=== PATIENT | male | born 1975 | race Caucasian/White ===

== ENCOUNTER → 2016-11-03 | Outpatient (CLI) | payer MEDICARE | END | disposition home or self-care (01) | LOC: LABWHC1 08:46 | PROVIDERS: ATTEND Internal Medicine Cardiovascular Disease | DX: R07.9 Chest pain, unspecified (principal) | CPT/HCPCS: 36415; 83704 ==

== ENCOUNTER → 2017-05-07 | Outpatient (CLI) | payer MEDICARE ==
--- NOTE | 2017-05-07 09:57 | CT ---
EXAMINATION TYPE: CT ChestAbdPelvis w con DATE OF EXAM: 05/07/2017 COMPARISON: 05/02/2016 and 06/30/2015. HISTORY: Testiculare cancer. Observation for Mets CT DLP: 601.3 mGycm. Automated Exposure Control for Dose Reduction was Utilized. CONTRAST: CT scan of the thorax, abdomen and pelvis is performed with IV Contrast, patient injected with 100 ml mL of Omnipaque 300. FINDINGS: LUNGS: The lungs are grossly clear, there is no concerning parenchymal mass or nodule identified. Wit hin the left interlobar fissure there are 2 nodular densities measuring 6 mm each which are retrospec tively stable from the prior exam and dating back to 06/30/2015 most likely representing intrafissural lymph nodes or fluid collections. There is no pleural effusion or pneumothorax seen. The tracheobro nchial tree is patent. MEDIASTINUM: There are no greater than 1 cm hilar or mediastinal lymph nodes. No pericardial effusi on is seen. OTHER: No additional significant abnormality is seen. LIVER/GB: No significant abnormality is appreciated. PANCREAS: No significant abnormality is seen. SPLEEN: No significant abnormality is seen. ADRENALS: No significant abnormality is seen. KIDNEYS: No significant abnormality is seen. BOWEL: No significant abnormality is seen. GENITAL ORGANS: The prostate gland is again enlarged measuring 5.2 cm and is heterogenous. LYMPH NODES: No greater than 1cm abdominal or pelvic lymph nodes are appreciated. Periaortic lymph no sofía measures 7 mm on series 3 image 82 series 3 image 76. These are overall not enlarged and similar to the prior exam. OSSEOUS STRUCTURES: The sclerotic focus within the left iliac bone on series 3 image 108 is stable fr om the prior examinations as is the peripherally sclerotic nonaggressive appearing left iliac lesion on series 3 image 97. No new or suspicious osseous lesions are seen. There is redemonstration of an S -shaped scoliotic curvature of the thoracolumbar spine. IMPRESSION: 1. No evidence of recurrent or metastatic disease. 2. 7 mm periaortic lymph nodes, stable from the prior exams. 3. Enlarged heterogenous prostate most likely relating to benign prostatic hyperplasia. 4. Stable left iliac osseous lesions, likely benign
== END | disposition home or self-care (01) ==
LOC: RADCTMAIN 07:21
PROVIDERS: ATTEND Internal Medicine Hematology & Oncology
DX: C62.91 Malignant neoplasm of right testis, unspecified whether descended or undescended (principal); L98.9 Disorder of the skin and subcutaneous tissue, unspecified
CPT/HCPCS: 71260; 74177; Q9967

== ENCOUNTER → 2018-05-21 | Outpatient (CLI) | payer MEDICARE ==
--- NOTE | 2018-05-21 14:01 | CT ---
EXAMINATION TYPE: CT ChestAbdPelvis w con DATE OF EXAM: 05/21/2018 COMPARISON: CT chest abdomen pelvis May 07, 2017 and older studies. PET/CT July 17, 2015 HISTORY: Testicular cancer progress study. CT DLP: 1385 mGycm. Automated Exposure Control for Dose Reduction was Utilized. CONTRAST: CT scan of the thorax, abdomen and pelvis is performed with IV Contrast, patient injected with 100 ml mL of Isovue 300. FINDINGS: LUNGS: The lungs are grossly clear, there is no concerning new greater than 5 mm parenchymal mass or nodule identified. Tiny nodules left mid lung along the fissure measuring up to 6 x 2 mm axial image 34 stable presumed benign intrafissural lymph nodes. There is no pleural effusion or pneumothorax se en. The tracheobronchial tree is patent. MEDIASTINUM: There are no greater than 1 cm hilar or mediastinal lymph nodes. No pericardial effusi on is seen. OTHER: No suspicious left supraclavicular adenopathy on current study near axial image 8. LIVER/GB: No significant abnormality is appreciated. PANCREAS: No significant abnormality is seen. SPLEEN: No significant abnormality is seen. ADRENALS: No significant abnormality is seen. KIDNEYS: No significant abnormality is seen. BOWEL: No significant abnormality is seen. GENITAL ORGANS: Prostate gland is upper limits of normal LYMPH NODES: No new greater than 1cm abdominal or pelvic lymph nodes are appreciated. At area of prio r suspicious neoplasm or adenopathy aortocaval region midabdomen on 2014 CT there is stable 5 x 4 mm lymph node on current study axial image 75. OSSEOUS STRUCTURES: Underlying dextroconvex scoliosis centered in the mid to lower thoracic spine is redemonstrated. Levoconvex scoliosis centered in mid lumbar spine is again seen. Few scattered sclero tic foci throughout the pelvis are redemonstrated and stable favoring benign bone islands largest is left iliac bone coronal image 54. OTHER: Right testicle is surgically absent in the right scrotum. IMPRESSION: No suspicious recurrent mass or adenopathy with particular attention to left supraclavicu lar and retroperitoneal regions in the mid abdomen at area of prior neoplasm on PET/CT 2014.
== END ==
LOC: RADCTMAIN 10:41
PROVIDERS: ATTEND Internal Medicine Hematology & Oncology
DX: C62.90 Malignant neoplasm of unspecified testis, unspecified whether descended or undescended (principal)
CPT/HCPCS: 71260; 74177; Q9967

== ENCOUNTER → 2019-05-22 | Outpatient (CLI) | payer MEDICARE ==
--- NOTE | 2019-05-22 14:08 | CT ---
EXAMINATION TYPE: CT ChestAbdPelvis w con DATE OF EXAM: 05/22/2019 COMPARISON: CT May 21, 2018 and older CTs. PET/CT from 2014. HISTORY: Testicular cancer follow up. CT DLP: 1230 mGycm. Automated Exposure Control for Dose Reduction was Utilized. CONTRAST: CT scan of the thorax, abdomen and pelvis is performed with oral and with IV Contrast, patient inject ed with 100 mL of Isovue M300. FINDINGS: LUNGS: The lungs are grossly clear, there is no concerning new parenchymal mass or nodule identified. Stable tiny nodules for reference axial image 36 near fissure. There is no pleural effusion or pneu mothorax seen. The tracheobronchial tree is patent. MEDIASTINUM: There are no greater than 1 cm hilar or mediastinal lymph nodes. No cardiomegaly or pe ricardial effusion is seen. No recurrent left supraclavicular adenopathy. LIVER/GB: No significant abnormality is appreciated. PANCREAS: No significant abnormality is seen. SPLEEN: No significant abnormality is seen. ADRENALS: No significant abnormality is seen. KIDNEYS: No significant abnormality is seen. BOWEL: No significant abnormality is seen. GENITAL ORGANS: No gross abnormality seen. LYMPH NODES: No greater than 1cm abdominal or pelvic lymph nodes are appreciated. Subcentimeter aorto caval lymph node axial image 77 is less prominent. No new suspicious retroperitoneal lymph nodes are seen. OSSEOUS STRUCTURES: S-shaped scoliosis is redemonstrated. Scattered tiny sclerotic foci throughout th e pelvis favor benign bone islands unchanged from prior largest left iliac bone above hip joint coron al image 54. OTHER: No significant additional abnormality is seen. IMPRESSION: No suspicious recurrent mass or adenopathy.
== END | disposition home or self-care (01) ==
LOC: RADCTMAIN 11:42
PROVIDERS: ATTEND Internal Medicine Hematology & Oncology
DX: C62.91 Malignant neoplasm of right testis, unspecified whether descended or undescended (principal)
CPT/HCPCS: 71260; 74177; Q9967

== ENCOUNTER → 2020-05-18 | Outpatient (CLI) | payer MEDICARE ==
--- NOTE | 2020-05-18 17:29 | CT ---
EXAMINATION TYPE: CT ChestAbdPelvis w con DATE OF EXAM: 05/18/2020 COMPARISON: CT chest abdomen pelvis 05/22/2019 HISTORY: Testicular cancer Automated exposure control for dose reduction was used. CONTRAST: CT scan of the chest, abdomen and pelvis is performed with Oral Contrast and with IV Contrast, patien t injected with 100 mL of Isovue 300. FINDINGS: LUNGS: The lungs are grossly clear, there is no concerning parenchymal mass or nodule identified. Th ere is no pleural effusion or pneumothorax seen. The tracheobronchial tree is patent. MEDIASTINUM: There are no greater than 1 cm hilar or mediastinal lymph nodes. No pericardial effusion is seen. Cardiac size normal. OTHER: No axillary lymphadenopathy. LIVER: Normal. BILIARY SYSTEM: Normal. PANCREAS: Normal. SPLEEN: Normal. ADRENALS: Normal. KIDNEYS: Normal. BOWEL: Normal. PERITONEUM: Normal. LYMPH NODES: No lymphadenopathy. PELVIS: Normal urinary bladder. Status post right orchiectomy. VASCULATURE: No abdominal aortic aneurysm. MUSCULOSKELETAL: No aggressive osseous destructive lesions. Redemonstrated benign bone island of the left pelvis. There is biconvex curvature of the spine. IMPRESSION: No evidence of metastatic testicular cancer of the chest, abdomen, or pelvis.
== END | disposition home or self-care (01) ==
LOC: RADCTMAIN 09:29
PROVIDERS: ATTEND Internal Medicine Hematology & Oncology
DX: C62.91 Malignant neoplasm of right testis, unspecified whether descended or undescended (principal)
CPT/HCPCS: 71260; 74177; Q9967